=== PATIENT | female | born 1960 | race Caucasian/White ===

== ENCOUNTER → 2020-11-21 | Outpatient (CLI) | payer BC ==
[~2020-11-21] MED LIST: ASPIRIN81 M2 PO; BENAZEPRIL-HCT1 EA11 PO; COREG3.125 MG PO; FENOFIBRATE160 MG PO; FISH OIL 1,001000 M2 PO; LEVOTHYROXIN0.025 MG PO; LIPITOR10 MG PO; LOTENSIN20 MG PO; METFORMIN HCL500 MG PO; NORVASC 5 MG TAB5 MG PO; POTASSIUM20 PO; TUMS PO; VITAMIN D2000 UNIT PO
[2020-11-21 08:58] LABS: POTASSIUM 3.9 mmol/L (3.5-5.1)
== END ==
LOC: M.LAB 05:01
PROVIDERS: ATTEND Anesthesiology
DX: E87.6 Hypokalemia (principal); E11.9 Type 2 diabetes mellitus without complications